=== PATIENT | female | born 1940 | race Caucasian/White ===

== ENCOUNTER 2017-12-06 14:55 | Emergency (ER) | payer OTHER ==
[2017-12-06 15:06] VITALS: BP 155/81; TEMP 98.1; BMI 25.0
--- NOTE | 2017-12-06 15:40 | ED.PDOC ---
General ED Provider: Dr. MARKO BLACKMON Chief Complaint: Fall Stated Complaint: Pain and swelling Lt Orbit after falling last night striking her lt forehead/orbit against a stone. States she was out picking up twigs and wood sticks/pebbels and when bending over lost her balance and fell forward. Denies loss of consciousness. Complains of feeling her vision is distorted./ imbalanced. Complains of pain and swelling of her lt hand and wrist-resulting of falling with her lt hand out stretched to catch herself when falling Time Seen by Physician: 15:15 Mode of Arrival: Walk-In Information Source: Patient Exam Limitations: No limitations Nursing and Triage Documentation Reviewed and Agree: Yes Reviewed sepsis parameters & appropriate labs ordered?: Yes System Inflammatory Response Syndrome: Not Applicable Sepsis Protocol: For patient's 13 years and over: Temp is 96.8 and below OR 101 and greater Pulse >90 BPM Resp >20/minute Acutely Altered Mental Status Are patient's symptoms suggestive of a new infection, such as: -Pneumonia -Skin, Soft Tissue -Endocarditis -UTI -Bone, Joint Infection -Implantable Device -Acute Abdominal Infection -Wound Infection -Meningitis -Blood Stream Catheter Infection -Unknown System Inflammatory Response Syndrome: Not Applicable Trauma/Injury Complaint Exam - Facial Injury Complaint/Exam Location of Pain: Reports: Left, Forehead (periorbial region ) Mechanism of Injury: Reports: Trauma Onset/Duration: 12 hours Symptoms Are: Still present Onset of Pain: Reports: Immediate Initial Severity: Severe Current Severity: Moderate Location: Reports: Diffuse Character: Reports: Sharp, Dull, Aching Alleviating: Reports: Rest, Ice Associated Signs and Symptoms: Reports: Swelling, Redness, Bruising, Visual defects (Lt eyelid edematous with ecchymoses; no involvement of glove. BONIFACIO-A; EOM-I Acutiy 20/20 OU) Related History: Denies: Similar episode Related Surgical History: Reports: None Facial Findings: Present: Normal findings Differential Diagnoses: Contusion Review of Systems - Review Of Systems Constitutional: Reports: No symptoms Eyes: Reports: No symptoms, Other (periorbital contusion and ecchymoses) Ears, Nose, Mouth, Throat: Reports: No symptoms Respiratory: Reports: No symptoms Cardiac: Reports: No symptoms GI: Reports: No symptoms : Reports: No symptoms Musculoskeletal: Reports: No symptoms Skin: Reports: No symptoms Neurological: Reports: No symptoms Endocrine: Reports: No symptoms Hematologic/Lymphatic: Reports: No symptoms All Other Systems: Reviewed and Negative Past Medical History - Past Medical History Previously Healthy: Yes Endocrine: Reports: None Cardiovascular: Reports: None, CAD, Hypertension Respiratory: Reports: None Hematological: Reports: None Gastrointestinal: Reports: None Genitourinary: Reports: None, UTI Neuro/Psych: Reports: None, Anxiety Musculoskeletal: Reports: None Cancer: Reports: None Last Menstrual Period: N/A - Surgical History General Surgical History: Reports: None - Family History Family History: Reports: None - Social History Smoking Status: Never smoker Hx Substance Use: No Alcohol Screening: None Physical Exam - Physical Exam Appearance: Well-appearing, Well-nourished Ill-appearing: None Pain Distress: Mild Eyes: BONIFACIO, EOMI, Conjunctiva clear (sl injected/Edema secondary to fall and trauma), Right pupil size (3mm and equally reactive), Left pupil size (3mm and equally reactive) ENT: Ears normal, Nose normal, Oropharynx normal Neck: Supple Respiratory: Airway patent, Breath sounds clear, Breath sounds equal, Respirations nonlabored Cardiovascular: RRR, Pulses normal, No rub, No murmur GI/: Soft, Nontender, No masses, Bowel sounds normal, No Organomegaly Musculoskeletal: Normal strength (Tenderness over Lt Knee with abrasion / contusion), ROM intact, No edema, No calf tenderness Skin: Warm, Dry, Normal color Neurological: Sensation intact, Motor intact, Reflexes intact, Cranial nerves intact (EOM -I with good tracking /VA recorded), Alert, Oriented Psychiatric: Affect appropriate, Mood appropriate Interpretation - Radiology Interpretation Radiology Interpretation By: Radiologist Radiology Results: No acute changes Exam Interpreted: CXR, CT Scan Re-Evaluation - Re-Evaluation Time of Re-Evaluation: 17:40 Status: Improved Vital Signs Stable: Yes Appearance: NAD Lungs: Clear Skin: Warm and Dry Neuro: Alert and Oriented X3 CV: RRR Critical Care Note - Critical Care Note Total Time (mins): 30 Course - Course Hematology/Chemistry: 12/06/17 16:02 12/06/17 16:02 Orders, Labs, Meds: Lab Review 12/06/17 12/06/17 12/06/17 15:59 16:02 16:02 WBC 7.36 RBC 4.23 Hgb 12.8 Hct 37.9 MCV 89.6 MCH 30.3 MCHC 33.8 RDW Coeff of Abiodun 13.0 Plt Count 216 Immature Gran % (Auto) 0.1 Neut % (Auto) 57.7 Lymph % (Auto) 30.8 Brown % (Auto) 7.3 Eos % (Auto) 3.4 Baso % (Auto) 0.7 Immature Gran # (Auto) 0.0 Neut # (Auto) 4.2 Lymph # (Auto) 2.3 Brown # (Auto) 0.5 Eos # (Auto) 0.3 Baso # (Auto) 0.1 Sodium 142 Potassium 3.9 Chloride 107 Carbon Dioxide 24 Anion Gap 14.9 BUN 13 Creatinine 0.82 Estimated GFR (MDRD) 67.00 BUN/Creatinine Ratio 15.85 Glucose 84 Calcium 9.6 Total Bilirubin 0.6 AST 15 ALT 15 Alkaline Phosphatase 63 Total Protein 7.4 Albumin 3.8 Globulin 3.6 Albumin/Globulin Ratio 1.06 Urine Color Yellow Urine Clarity Cloudy Urine pH 5.5 Ur Specific Temple 1.025 Urine Protein Trace Urine Glucose (UA) Negative Urine Ketones Trace Urine Blood Trace-lysed Urine Nitrite Positive Urine Bilirubin Negative Urine Urobilinogen 0.2 Ur Leukocyte Esterase 2+ Urine Microscopic WBC 10-20 Ur Squamous Epith Cells 0-2 Urine Bacteria 4+ Orders Category Date Time Status NPO REMINDER: IMAGING ONCE CARE 12/06/17 15:44 Completed CBC W/ AUTO DIFF Stat LAB 12/06/17 16:02 Completed CMP [COMPREHENSIVE METABOLIC PANEL] Stat LAB 12/06/17 16:02 Completed UA [URINALYSIS C & S IF INDICATED] Stat LAB 12/06/17 15:59 Completed URINE CULTURE Routine LAB 12/06/17 15:[address] CERVICAL SPINE W/O CONTRAST Stat RADS 12/06/17 15:[address] HEAD W/O CONTRAST Stat RADS 12/06/17 15:[address] LUMBAR SPINE W/O CONTRAST Stat RADS 12/06/17 15:[address] MAXILLOFACIAL W/WO CONTRAST Stat RADS 12/06/17 15:[address] PELVIS W/O CONTRAST Stat RADS 12/06/17 15:45 Completed HAND, LEFT 3 VIEWS Stat RADS 12/06/17 16:45 Completed KNEE, LEFT 4 VIEWS Stat RADS 12/06/17 16:47 Completed Vital Signs: Temp Pulse Resp BP Pulse Ox 12/06/17 14:59 98.1 F 88 20 155/81 H 98 Departure - Departure Time of Disposition: 18:00 Disposition: HOME SELF-CARE Discharge Problem: Periorbital contusion of left eye, UTI (urinary tract infection), Contusion of knee, Closed head injury, Hand contusion Instructions: Urinary Tract Infection in Women (ED), Head Injury (ED) Condition: Good Pt referred to PMD for follow-up: Yes (1 week ) IPMP verified?: No Additional Instructions: Take antibiotics as directed Apply ice to lt orbital region /lt knee as directed. Ambulation as tolerated Monitor vision-if any change of vision follow up with guest relations manager Follow up PCP in next 4-5 days Wound care Prescriptions: Nitrofurantoin Monohyd/M-Cryst [Macrobid 100 mg Capsule] 100 mg PO BID #20 capsule Allergies/Adverse Reactions: Allergies NSAIDS (Non-Steroidal Anti-Inflamma Adverse Reaction (Verified 12/06/17 15:47) salicylates Adverse Reaction (Verified 12/06/17 15:47) shellfish derived Adverse Reaction (Verified 12/06/17 15:06) sulfamethoxazole [From Bactrim] Adverse Reaction (Verified 12/06/17 15:47) sulfasalazine Adverse Reaction (Verified 12/06/17 15:47) trimethoprim [From Bactrim] Adverse Reaction (Verified 12/06/17 15:47) Home Medications: Ambulatory Orders Alprazolam 1 mg PO BID PRN 12/06/17 Isosorbide Mononitrate [Isosorbide Mononitrate ER] 60 mg PO DAILY 12/06/17 Nitrofurantoin Monohyd/M-Cryst [Macrobid 100 mg Capsule] 100 mg PO BID #20 capsule 12/06/17 Nitroglycerin [Nitrostat] 0.4 mg SL Q5MIN X 3 DOSES PRN 12/06/17 Sertraline HCl 100 mg PO DAILY 12/06/17 Disposition Discussed With: Patient, Family
--- NOTE | 2017-12-06 17:38 | CT ---
EXAM: CT brain without contrast HISTORY: Blunt trauma TECHNIQUE: CT of the brain without intravenous contrast FINDINGS: There is no acute hemorrhage midline shift or mass effect. No hydrocephalus or abnormal e xtra-axial fluid collection. Generalized involutional atrophy, moderate. Chronic microvascular el ges of the white matter tracts, moderate. No acute large vessel territorial infarct is seen. The [place] cranium appears normal. The visualized paranasal sinuses are clear. Left frontal scalp hematoma wi thout underlying bony abnormality. IMPRESSION: 1. Chronic changes as described. No acute intracranial abnormality is seen.
--- NOTE | 2017-12-06 17:39 | CT ---
EXAM: CT of the pelvis without contrast. HISTORY: Fall. COMPARISON: None. TECHNIQUE: Contiguous axial images were obtained through the bony pelvis. Sagittal and coronal refo rmats reviewed. No contrast. FINDINGS: There are no acute or healing fractures. There are no lytic or blastic lesions. Mild ost eopenia is seen. There is joint narrowing and subchondral cystic changes, right greater than left. T here is no joint effusion. Joint narrowing osteophyte formation is seen in the sacroiliac joints duke aterally. There are degenerative changes of the spine with degenerative joint disease. Diverticulos is is seen without evidence of acute diverticulitis. There are postoperative changes in the intra-ab dominal wall. IMPRESSION: 1. No acute fractures. 2. Osteoarthritis of the hips, sacroiliac joints and lumbar spine. 3. Diverticulosis without evidence of acute diverticulitis.
--- NOTE | 2017-12-06 17:43 | CT ---
Exam: CT lumbar spine without contrast History: Fall with back pain Technique: [address] lumbar spine with multiplanar reformations FINDINGS: The lumbar spine shows normal alignment. Vertebral body height is maintained. Multilevel disc space narrowing and endplate spondylosis. No fracture lines or suspicious bony lesions. No im mediate paravertebral soft tissue abnormalities. The sacrum is intact. Colonic diverticulosis of the sigmoid incidentally noted. Impression: 1. No acute abnormalities of the lumbar spine. 2. Multilevel facet and endplate degenerative change.
--- NOTE | 2017-12-06 17:44 | CT ---
EXAM: CT of the facial bones.. HISTORY: Fall.. COMPARISON: None. TECHNIQUE: Contiguous axial images at 3 mm intervals were obtained through the facial bones. Sagitt al and coronal reformats were reviewed. No contrast was given. FINDINGS: There are no acute fractures. The zygomatic arches, nasal bones, pterygoid plates and victoria ibles are intact. The sinuses are well-aerated. There are no air-fluid levels to suggest acute sinu sitis. There is no significant mucosal thickening. The ostiomeatal units and frontoethmoidal recess es are patent bilaterally. The nasal septum is in the midline. No anatomic variants are seen. The orbits are intact. There is some soft tissue swelling over the left frontal bone. A small scalp ashlee dileep is seen. The underlying bone is intact. The osseous structures are unremarkable. IMPRESSION: 1. No acute fractures 2. Left frontal scalp hematoma
--- NOTE | 2017-12-06 17:45 | DI ---
EXAM: Left hand, three view. HISTORY: Pain. Fall. Spine. COMPARISON: None. FINDINGS: AP, lateral and oblique views of the left hand. On the lateral view, there is a lucency th rough the distal tuft of the third digit. This is not seen on the other view There are no lytic or b lastic lesions. Soft tissues are normal. Bone mineralization is normal. There is severe joint narr owing and sclerosis of the first carpometacarpal joint. Joint narrowing is seen in the interphalange al joints as well. There are no erosive changes. IMPRESSION: 1. Lucency in the distal phalanx of the third digit does not have typical appearance of a fracture i s not seen on the other views. Correlate for acute pain at this specific site to exclude a fracture. 2. Severe osteoarthritis.
--- NOTE | 2017-12-06 17:45 | CT ---
CT cervical spine without contrast HISTORY: Fall with neck pain TECHNIQUE: CT of the cervical spine with multiplanar reformations. FINDINGS: Reformatted images demonstrate normal alignment with preservation of vertebral body height . Multilevel disc space narrowing and endplate spondylosis. No fracture seen on the axial or reforma tted images. No acute surrounding soft tissue abnormalitites. Lung apices are clear. IMPRESSION: No acute findings in the cervical spine.
--- NOTE | 2017-12-06 17:46 | DI ---
EXAM: Left knee, four views HISTORY: Fall COMPARISON: None. FINDINGS: The alignment is normal. There is bicompartmental narrowing the joint. There is some sof t tissue swelling anteriorly. No displaced fracture is seen. Prominent arteriosclerotic calcificati on femoral popliteal artery. Impression No fracture or dislocation is seen Bicompartmental narrowing of the left knee joint Soft tissue swelling or contusion anteriorly.
== END 2017-12-06 18:14 | disposition home or self-care (01) ==
LOC: ED 14:55
DX: S09.90XA Unspecified injury of head, initial encounter (principal); S80.02XA Contusion of left knee, initial encounter; S00.12XA Contusion of left eyelid and periocular area, initial encounter; S60.222A Contusion of left hand, initial encounter; N39.0 Urinary tract infection, site not specified; W19.XXXA Unspecified fall, initial encounter
CPT/HCPCS: 36415; 80053; 81001; 85025; 87086; 87186; 99283